=== PATIENT | male | born 1990 | race Two or more races ===

== ENCOUNTER 2024-11-06 11:05 | Emergency (ER) | payer MEDICAID ==
[~2024-11-06] VITALS: Ht 172.7 cm; Wt 58.0 kg
[2024-11-06 12:38] LABS: BASOPHILS % (AUTO) 0.1 % (0-1); EOSINOPHILS % (AUTO) 0 % (0-6); HEMATOCRIT 35.1 % (42.0-52.0); HEMOGLOBIN 11.9 g/dl (14.0-17.9); LYMPHOCYTES # (AUTO) 0.7 X10'3 (1.1-4.8); LYMPHOCYTES % (AUTO) 10.6 % (21-51); MEAN CORPUSCULAR HEMOGLOBIN 28.4 PG (27.0-31.0); MEAN CORPUSCULAR HGB CONC 33.9 g/dL (33.0-36.5); MEAN CORPUSCULAR VOLUME 83.9 FL (78-98); MEAN PLATELET VOLUME 9.4 FL (7.4-10.4); MONOCYTES # (AUTO) 0.5 X10'3 (0-0.9); MONOCYTES % (AUTO) 7.4 % (2-12); NEUTROPHILS # (AUTO) 5.1 X10'3 (1.8-7.7); NEUTROPHILS % (AUTO) 81.9 % (42-75); PLATELET COUNT 219 X10'3 (140-440); RED BLOOD COUNT 4.19 X10'6 (4.70-6.10); RED CELL DISTRIBUTION WIDTH 14.2 % (11.5-14.5); WHITE BLOOD COUNT 6.3 X10'3 (4.5-11.0)
[2024-11-06] MEDS: normal saline 1000ml 1,000 ML IV ONE (12:39)
[2024-11-06 12:41] VITALS: TEMP 100
[2024-11-06] MEDS: CefTRIAXone 2gm/D5W 50ml BAG 50 ML IV ONE (12:44)
[2024-11-06] MEDS: acetaminophen 325mg tablet PO ONE (12:44)
[2024-11-06] MEDS: azithromycin 250mg tablet PO ONE (12:44)
[2024-11-06 13:00] LABS: ALANINE AMINOTRANSFERASE 14 U/L (12-78); ALBUMIN 3.7 G/DL (3.4-5.0); ALBUMIN/GLOBULIN RATIO 0.7 (1.1-1.5); ALKALINE PHOSPHATASE 82 IU/L (46-116); ANION GAP 11 (8-16); ASPARTATE AMINO TRANSFERASE 26 U/L (10-37); BILIRUBIN,TOTAL 0.4 MG/DL (0.1-1.0); BLOOD UREA NITROGEN 13 MG/DL (7-18); BUN/CREATININE RATIO 17.3 (10.0-20.0); CALCIUM 8.6 MG/DL (8.5-10.1); CHLORIDE 95 MMOL/L (99-107); CREATININE 0.75 MG/DL (0.60-1.10); GLUCOSE 113 MG/DL (70-104); POTASSIUM 3.9 MMOL/L (3.5-5.1); PRO BRAIN NATRIURETIC PEPTIDE 86 PG/ML (0-125); SODIUM 133 MMOL/L (135-145); eCRCL 113 ML/MIN; eGFR > 90 ML/MIN
[2024-11-06] MEDS ORDERED: AMOX-117 PO (14:57)
[2024-11-06] MEDS ORDERED: AZIT-164 PO (14:57)
[2024-11-06 16:22] VITALS: BP 110/88; PULSE 94; RESP 20; O2SAT 97
== END 2024-11-06 16:25 | disposition home or self-care (01) ==
LOC: ER 11:06
DX: J18.9 Pneumonia, unspecified organism (principal); I49.9 Cardiac arrhythmia, unspecified; Z20.822 Contact with and (suspected) exposure to COVID-19
CPT/HCPCS: 36415; 71045; 80053; 83605; 83880; 84484; 85025; 87040; 87502; 87503; 87811; 93005; 96365; 99285; J0696; J7030